=== PATIENT | male | born 1970 | race Caucasian/White ===

== ENCOUNTER 2020-08-31 20:17 | Emergency (ER) | payer OTHER ==
[2020-08-31] MEDS ORDERED: SODIUM CHLORIDE 0.9% 1,000 ML IV STA (20:24)
[2020-08-31] MEDS ORDERED: fentaNYL (PF) 50 MCG/ML 2 ML AMP IVP STA ×2 (20:24→21:07)
[2020-08-31 20:36] LABS: Glucose,Whole Blood 102 mg/dL (75-99)
[2020-08-31] MEDS ORDERED: RX INFO: IV CONTRAST WAS GIVEN 1 EACH MISC MISCELLANE PRN (20:37)
[2020-08-31 21:01] LABS: Creatine Kinase 555 U/L (55-170)
[2020-08-31 21:03] LABS: ALT 46 U/L (4-49); AST 67 U/L (17-59); African American GFR (CKD) >90 (>60 ml/min/1.73 sqM); Albumin 3.9 g/dL (3.5-5.0); Alcohol <10 mg/dL; Alkaline Phosphatase 74 U/L (38-126); Amylase 56 U/L (30-110); Anion Gap 11 mmol/L; Blood Urea Nitrogen 15 mg/dL (9-20); Calcium 9.1 mg/dL (8.4-10.2); Carbon Dioxide 22 mmol/L (22-30); Chloride 106 mmol/L (98-107); Glucose 100 mg/dL (74-99); Lipase 260 U/L (23-300); Non-African American GFR(CKD) >90 (>60 ml/min/1.73 sqM); Potassium 3.6 mmol/L (3.5-5.1); Sodium 139 mmol/L (137-145); Total Bilirubin 0.6 mg/dL (0.2-1.3); Total Protein 6.5 g/dL (6.3-8.2)
[2020-08-31 21:04] LABS: Anisocytosis Slight; Basophils # (A) 0.1 k/uL (0-0.2); Basophils % (A) 0 %; Eosinophils # (A) 0.2 k/uL (0-0.7); Eosinophils % (A) 1 %; HCT 44.2 % (39.0-53.0); HGB 14.7 gm/dL (13.0-17.5); Lymphocytes # (A) 3.7 k/uL (1.0-4.8); Lymphocytes % (A) 24 %; MCHC 33.3 g/dL (31.0-37.0); MCV 72.2 fL (80.0-100.0); Mean Platelet Volume 8.3; Microcytosis Moderate; Monocytes # (A) 0.7 k/uL (0-1.0); Monocytes % (A) 4 %; Neutrophils # (A) 10.8 k/uL (1.3-7.7); Neutrophils % (A) 69 %; Platelet Count 282 k/uL (150-450); RBC 6.12 m/uL (4.30-5.90); RDW 17.1 % (11.5-15.5); WBC 15.6 k/uL (3.8-10.6)
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
[2020-08-31 21:14] LABS: Creatine Kinase MB 5.4 ng/mL (0.0-2.4); Troponin I <0.012 ng/mL (0.000-0.034)
[2020-08-31 21:29] LABS: Prothrombin Time 10.5 sec (9.0-12.0)
[2020-08-31 21:31] LABS: Partial Thromboplastin Time 19.9 sec (22.0-30.0)
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
--- NOTE | 2020-08-31 21:37 | CT ---
EXAMINATION TYPE: CT thor lumbar spine w con DATE OF EXAM: 08/31/2020 COMPARISON: None HISTORY: Pain CT DLP: mGycm Automated exposure control for dose reduction was used. CONTRAST: Performed , patient injected with mL of . Contrast was Isovue 100 mL. Fairly normal alignment. There is slight anterior wedging of lower thoracic vertebra up to 15% consis tent with old injury. There is anterior bridging mild osteophyte formation. There is no thoracic para spinal mass. There is fracture of the right posterior fourth rib at the costovertebral junction. The transverse processes of the lumbar spine are intact. There is no lumbar compression fracture. There i s degenerative disc space narrowing in the thoracic and lumbar spine. I see no focal bone destruction . The sacroiliac joints appear intact. IMPRESSION: Acute nondisplaced fracture right posterior fourth rib.
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
[2020-08-31] MEDS ORDERED: MORPHINE SULFATE 4 MG/ML SYRINGE IVP STA ×3 (22:00→23:27)
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
[2020-08-31 23:10] VITALS: BP 153/76; PULSE 105; RESP 15
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
[2020-09-01] MEDS ORDERED: LIDOCAINE 1% INJ 10MG/ML (20 ML MDV) SQ ONE ×2 (00:50→22:08)
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
== END 2020-09-01 00:25 | disposition other institution (70) ==
LOC: EC 20:17
DX: S06.0X9A Concussion with loss of consciousness of unspecified duration, initial encounter (principal); S22.31XA Fracture of one rib, right side, initial encounter for closed fracture; S01.01XA Laceration without foreign body of scalp, initial encounter; S00.83XA Contusion of other part of head, initial encounter; S80.212A Abrasion, left knee, initial encounter; S80.211A Abrasion, right knee, initial encounter; S40.812A Abrasion of left upper arm, initial encounter; S40.811A Abrasion of right upper arm, initial encounter; S00.81XA Abrasion of other part of head, initial encounter; S00.31XA Abrasion of nose, initial encounter; S60.512A Abrasion of left hand, initial encounter; S60.511A Abrasion of right hand, initial encounter; V28.0XXA Motorcycle driver injured in noncollision transport accident in nontraffic accident, initial encounter; Y92.411 Interstate highway as the place of occurrence of the external cause
CPT/HCPCS: 99285; 96365; 96375; 96376; 96361; 36415; 93005; 86900; 86901; 80053; 82150; 82550; 82553; 83605; 83690; 84484; 85025; 85610; 85730; 86850; 80320; 73110; 73130; 73590; 73080; 72170; 73552; 71045; 72129; 72125; 72132; 70450; 71260; 74177; 12004; J2270 ×2; J0690; J2001; J3010; Q9967